=== PATIENT | male | born 1960 | race Caucasian/White ===

== ENCOUNTER 2017-06-10 10:49 | Emergency (ER) | payer MEDICARE ==
[2017-06-10 11:02] VITALS: TEMP 96.9
[2017-06-10] MEDS ORDERED: SODIUM CHLORIDE 0.9% 1,000 ML IV STA (11:26)
--- NOTE | 2017-06-10 11:29 | ED ---
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 He complains some left-sided chest discomfort over his pacemaker site which he states he gets after the fairly relates. He did not notice any of the usual signs however. He has a cough fevers chills nausea vomiting sweats or other symptoms no weakness he feels back to normal at this time except for some slight left chest wall tenderness and his pacemaker site. The current generator is from 2010. MD Complaint: loss of consciousness - Related Data Home Medications Medication Instructions Recorded Confirmed Albuterol Nebulized [Ventolin 2.5 mg INHALATION RT-Q4H PRN 06/10/17 06/10/17 Nebulized] Albuterol Sulfate [Proair Hfa] 1 - 2 puff INHALATION RT-Q4H PRN 06/10/17 Aspirin 325 mg PO DAILY 06/10/17 06/10/17 Bumetanide [BUMEX] 2 mg PO BID 06/10/17 06/10/17 Cholecalciferol [Vitamin D3] 5,000 unit PO DAILY 06/10/17 06/10/17 Febuxostat [Uloric] 40 mg PO DAILY 06/10/17 06/10/17 Isosorbide Mononitrate ER [Imdur] 30 mg PO DAILY 06/10/17 06/10/17 Latanoprost Ophth [Xalatan 0.005%] 1 drops BOTH EYES HS 06/10/17 06/10/17 Metolazone [Zaroxolyn] 5 mg PO Q7D 06/10/17 06/10/17 Metoprolol Succinate (ER) [Toprol 100 mg PO DAILY 06/10/17 06/10/17 Xl] Nitroglycerin Sl Tabs [Nitrostat] 0.4 mg SUBLINGUAL Q5M PRN 06/10/17 06/10/17 Potassium Chloride [Klor-Con 20] 20 meq PO BID-W/MEALS 06/10/17 06/10/17 Pravastatin Sodium [Pravachol] 80 mg PO DIRECTED 06/10/17 06/10/17 Spironolactone [Aldactone] 25 mg PO DIRECTED 06/10/17 06/10/17 Allergies Allergy/AdvReac Type Severity Reaction Status Date / Time KATHY Inhibitors Allergy Unknown Verified 06/10/17 11:54 ARB-Angiotensin Receptor Allergy Unknown Verified 06/10/17 11:54 Antagonist carvedilol [From Coreg] Allergy Unknown Verified 06/10/17 11:54 niacin Allergy Unknown Verified 06/10/17 11:54 NSAIDS (Non-Steroidal Allergy Unknown Verified 06/10/17 11:54 Anti-Inflamma omeprazole Allergy Unknown Verified 06/10/17 11:54 Penicillins Allergy Rash/Hives Verified 06/10/17 11:02 toremifene Allergy Unknown Verified 06/10/17 11:54 IRON OXIDE Allergy Unknown Uncoded 06/10/17 11:54 Review of Systems ROS Statement: Those systems with pertinent positive or pertinent negative responses have been documented in the HPI. ROS Other: All systems not noted in ROS Statement are negative. Past Medical History Past Medical History: Chest Pain / Angina, Heart Failure, COPD, GERD/Reflux, Hyperlipidemia, Hypertension, Myocardial Infarction ([place]) History of Any Multi-Drug Resistant Organisms: None Reported Past Surgical History: AICD, Appendectomy, Cholecystectomy, Coronary Bypass/CABG , Heart Catheterization With Stent Past Psychological History: No Psychological Hx Reported Smoking Status: Former smoker Past Alcohol Use History: None Reported Past Drug Use History: None Reported General Exam - General Exam Comments Initial Comments: This is a well-developed well-nourished awake alert oriented times 3 male Limitations: no limitations General appearance: alert, in no apparent distress Head exam: Present: atraumatic, normocephalic, normal inspection Eye exam: Present: normal appearance, PERRL, EOMI. Absent: scleral icterus, conjunctival injection, periorbital swelling ENT exam: Present: normal exam, mucous membranes moist Neck exam: Present: normal inspection. Absent: tenderness, meningismus, lymphadenopathy Respiratory exam: Present: normal lung sounds bilaterally, chest wall tenderness. Absent: respiratory distress, wheezes, rales, rhonchi, stridor Cardiovascular Exam: Present: regular rate, normal rhythm, normal heart sounds. Absent: systolic murmur, diastolic murmur, rubs, gallop, clicks GI/Abdominal exam: Present: soft, normal bowel sounds. Absent: distended, tenderness, guarding, rebound, rigid Extremities exam: Present: normal inspection, full ROM, normal capillary refill. Absent: tenderness, pedal edema, joint swelling, calf tenderness Back exam: Present: normal inspection Neurological exam: Present: alert, oriented X3, CN II-XII intact Psychiatric exam: Present: normal affect, normal mood Skin exam: Present: warm, dry, intact, normal color. Absent: rash Course Vital Signs 06/10/17 06/10/17 06/10/17 10:50 12:02 13:00 Temperature 96.9 F L Pulse Rate 63 58 L 59 L Respiratory 16 18 18 Rate Blood Pressure 158/74 151/66 155/63 O2 Sat by Pulse 96 95 95 Oximetry EKG Findings - EKG Results: EKG: interpreted by ERMD (Sinus rhythm with PVCs noted PA interval 180 QRS duration 140 QT/QTC of 502/50 to left exodeviation right bundle-branch block old inferior changes.) Medical Decision Making - Medical Decision Making Patient remains awake alert oriented times. Did have a long discussion with patient family also did discuss the case with Dr. Talbert also with the [employer] eligibility services representative. Patient's defibrillator did inappropriately go off today he has designed. Patient has no abnormality to check his lab work. He does have close follow-up with his production supply equipment tender and would like to go home at this time this seems reasonable patient will be discharged with copies of his labs and EKG is keep his follow-up no driving follow-up with his doctor return when necessary - Lab Data Result diagrams: 06/10/17 11:23 06/10/17 11:23 Lab Results 06/10/17 06/10/17 06/10/17 Range/Units 11:23 11:23 11:23 WBC 8.7 (3.8-10.6) k/uL RBC 4.04 L (4.30-5.90) m/uL Hgb 12.4 L (13.0-17.5) gm/dL Hct 36.8 L (39.0-53.0) % MCV 91.1 (80.0-100.0) fL MCH 30.8 (25.0-35.0) pg MCHC 33.8 (31.0-37.0) g/dL RDW 18.1 H (11.5-15.5) % Plt Count 163 (150-450) k/uL Neutrophils % 80 % Lymphocytes % 9 % Monocytes % 6 % Eosinophils % 3 % Basophils % 0 % Neutrophils # 6.9 (1.3-7.7) k/uL Lymphocytes # 0.8 L (1.0-4.8) k/uL Monocytes # 0.5 (0-1.0) k/uL Eosinophils # 0.3 (0-0.7) k/uL Basophils # 0.0 (0-0.2) k/uL Poikilocytosis Slight Anisocytosis Slight PT (9.0-12.0) sec INR (<1.2) APTT (22.0-30.0) sec Sodium 141 (137-145) mmol/L Potassium 3.8 (3.5-5.1) mmol/L Chloride 94 L (98-107) mmol/L Carbon Dioxide 32 H (22-30) mmol/L Anion Gap 15 mmol/L BUN 64 H (9-20) mg/dL Creatinine 2.20 H (0.66-1.25) mg/dL Est GFR (MDRD) Af Amer 38 (>60 ml/min/1.73 sqM) Est GFR (MDRD) Non-Af 31 (>60 ml/min/1.73 sqM) Glucose 120 H (74-99) mg/dL Calcium 10.2 (8.4-10.2) mg/dL Magnesium 2.1 (1.6-2.3) mg/dL Total Bilirubin 0.5 (0.2-1.3) mg/dL AST 22 (17-59) U/L ALT 36 (21-72) U/L Alkaline Phosphatase 96 (38-126) U/L Total Creatine Kinase 62 (55-170) U/L CK-MB (CK-2) 1.3 (0.0-2.4) ng/mL CK-MB (CK-2) Rel Index 2.1 Troponin I 0.021 (0.000-0.034) ng/mL Total Protein 7.5 (6.3-8.2) g/dL Albumin 4.6 (3.5-5.0) g/dL Urine Color Urine Appearance (Clear) Urine pH (5.0-8.0) Ur Specific Hume (1.001-1.035) Urine Protein (Negative) Urine Glucose (UA) (Negative) Urine Ketones (Negative) Urine Blood (Negative) Urine Nitrite (Negative) Urine Bilirubin (Negative) Urine Urobilinogen (<2.0) mg/dL Ur Leukocyte Esterase (Negative) 06/10/17 06/10/17 Range/Units 11:23 11:23 WBC (3.8-10.6) k/uL RBC (4.30-5.90) m/uL Hgb (13.0-17.5) gm/dL Hct (39.0-53.0) % MCV (80.0-100.0) fL MCH (25.0-35.0) pg MCHC (31.0-37.0) g/dL RDW (11.5-15.5) % Plt Count (150-450) k/uL Neutrophils % % Lymphocytes % % Monocytes % % Eosinophils % % Basophils % % Neutrophils # (1.3-7.7) k/uL Lymphocytes # (1.0-4.8) k/uL Monocytes # (0-1.0) k/uL Eosinophils # (0-0.7) k/uL Basophils # (0-0.2) k/uL Poikilocytosis Anisocytosis PT 10.3 (9.0-12.0) sec INR 1.0 (<1.2) APTT 24.6 (22.0-30.0) sec Sodium (137-145) mmol/L Potassium (3.5-5.1) mmol/L Chloride (98-107) mmol/L Carbon Dioxide (22-30) mmol/L Anion Gap mmol/L BUN (9-20) mg/dL Creatinine (0.66-1.25) mg/dL Est GFR (MDRD) Af Amer (>60 ml/min/1.73 sqM) Est GFR (MDRD) Non-Af (>60 ml/min/1.73 sqM) Glucose (74-99) mg/dL Calcium (8.4-10.2) mg/dL Magnesium (1.6-2.3) mg/dL Total Bilirubin (0.2-1.3) mg/dL AST (17-59) U/L ALT (21-72) U/L Alkaline Phosphatase (38-126) U/L Total Creatine Kinase (55-170) U/L CK-MB (CK-2) (0.0-2.4) ng/mL CK-MB (CK-2) Rel Index Troponin I (0.000-0.034) ng/mL Total Protein (6.3-8.2) g/dL Albumin (3.5-5.0) g/dL Urine Color Light Yellow Urine Appearance Clear (Clear) Urine pH 7.5 (5.0-8.0) Ur Specific Hume 1.006 (1.001-1.035) Urine Protein Negative (Negative) Urine Glucose (UA) Negative (Negative) Urine Ketones Negative (Negative) Urine Blood Negative (Negative) Urine Nitrite Negative (Negative) Urine Bilirubin Negative (Negative) Urine Urobilinogen <2.0 (<2.0) mg/dL Ur Leukocyte Esterase Negative (Negative) - Radiology Data Radiology results: report reviewed (Imaging shows no evidence of acute findings. ), image reviewed Disposition Clinical Impression: Syncope, Defibrillator discharge, Chronic renal insufficiency Disposition: HOME SELF-CARE Condition: Good Instructions: Syncope (ED) Additional Instructions: Defibrillator discharge today. Follow with her production supply equipment tender. No driving until cleared by cardiology. Return if any problems Referrals: Ela Bowles MD [Primary Care Provider] - 1-2 days
[2017-06-10 11:47] LABS: Anisocytosis Slight; Basophils % (A) 0 %; CH 31.8; Eosinophils # (A) 0.3 k/uL (0-0.7); Eosinophils % (A) 3 %; HCT 36.8 % (39.0-53.0); HDW 3.45; HGB 12.4 gm/dL (13.0-17.5); Luc # (Auto) 0.16; Luc % (Auto) 2; Lymphocytes # (A) 0.8 k/uL (1.0-4.8); Lymphocytes % (A) 9 %; MCH 30.8 pg (25.0-35.0); MCHC 33.8 g/dL (31.0-37.0); MCV 91.1 fL (80.0-100.0); Mean Platelet Volume 7.4; Monocytes # (A) 0.5 k/uL (0-1.0); Monocytes % (A) 6 %; Neutrophils # (A) 6.9 k/uL (1.3-7.7); Neutrophils % (A) 80 %; Poikilocytosis Slight; RBC 4.04 m/uL (4.30-5.90); RDW 18.1 % (11.5-15.5); WBC 8.7 k/uL (3.8-10.6); WBC (Perox) 8.75
[2017-06-10 11:53] LABS: Appearance,Urine Clear (Clear); Bilirubin,Urine Negative (Negative); Glucose,Urine (UA) Negative (Negative); Ketones,Urine Negative (Negative); Leukocyte Esterase,Urine Negative (Negative); Nitrite,Urine Negative (Negative); PH, Urine 7.5 (5.0-8.0); Protein,Urine Negative (Negative); Specific Gravity,Urine 1.006 (1.001-1.035); UA Billing (MACRO vs. MICRO) CHEM; Urobilinogen,Urine <2.0 mg/dL (<2.0)
[2017-06-10 11:55] LABS: Partial Thromboplastin Time 24.6 sec (22.0-30.0); Prothrombin Time 10.3 sec (9.0-12.0)
--- NOTE | 2017-06-10 12:03 | XR ---
EXAMINATION TYPE: XR chest 2V DATE OF EXAM: 06/10/2017 COMPARISON: 06/10/17 HISTORY: Shortness of breath TECHNIQUE: Frontal and lateral views of the chest are obtained. FINDINGS: Scattered senescent parenchymal changes noted. Hyperinflation compatible with COPD. No evidence for infiltrate. No evidence for atelectasis. Heart size is stable. Mediastinal structures are stable and grossly unremarkable. No evidence for hilar prominence. Degenerative changes dorsal spine. IMPRESSION: 1. No evidence for acute pulmonary disease.
[2017-06-10 12:05] LABS: Calcium 10.2 mg/dL (8.4-10.2); Magnesium 2.1 mg/dL (1.6-2.3); Potassium 3.8 mmol/L (3.5-5.1); Total Bilirubin 0.5 mg/dL (0.2-1.3); Total Protein 7.5 g/dL (6.3-8.2)
[2017-06-10 12:25] LABS: Creatine Kinase MB 1.3 ng/mL (0.0-2.4); Troponin I 0.021 ng/mL (0.000-0.034)
[2017-06-10 12:35] VITALS: RESP 18
[2017-06-10 14:25] VITALS: BP 138/76; PULSE 56
== END 2017-06-10 14:27 | disposition home or self-care (01) ==
LOC: EC 10:49
DX: T82.119A Breakdown (mechanical) of unspecified cardiac electronic device, initial encounter (principal); I13.0 Hypertensive heart and chronic kidney disease with heart failure and stage 1 through stage 4 chronic kidney disease, or unspecified chronic kidney disease; I50.9 Heart failure, unspecified; N18.9 Chronic kidney disease, unspecified; E78.5 Hyperlipidemia, unspecified; I25.2 Old myocardial infarction; Z87.891 Personal history of nicotine dependence; Z79.82 Long term (current) use of aspirin; Z79.899 Other long term (current) drug therapy; Z88.0 Allergy status to penicillin; Z88.6 Allergy status to analgesic agent; Z88.8 Allergy status to other drugs, medicaments and biological substances; Z95.810 Presence of automatic (implantable) cardiac defibrillator; Z86.79 Personal history of other diseases of the circulatory system
CPT/HCPCS: 36415; 71020; 80053; 81003; 82550; 82553; 83735; 84484; 85025; 85610; 85730; 93005; 96360; 96361; 99285

== ENCOUNTER 2017-06-10 22:16 | Inpatient (IN) | payer MEDICARE ==
[2017-06-10 22:27] LABS: Anisocytosis Slight; Basophils % (A) 0 %; CH 31.9; CHCM 34.8; Eosinophils # (A) 0.2 k/uL (0-0.7); Eosinophils % (A) 3 %; HCT 35.1 % (39.0-53.0); HDW 3.34; HGB 11.7 gm/dL (13.0-17.5); Luc # (Auto) 0.14; Luc % (Auto) 2; Lymphocytes # (A) 0.8 k/uL (1.0-4.8); Lymphocytes % (A) 9 %; MCH 30.7 pg (25.0-35.0); MCHC 33.3 g/dL (31.0-37.0); MCV 92.1 fL (80.0-100.0); Mean Platelet Volume 7.7; Monocytes # (A) 0.5 k/uL (0-1.0); Monocytes % (A) 5 %; Neutrophils # (A) 6.9 k/uL (1.3-7.7); Neutrophils % (A) 81 %; RBC 3.82 m/uL (4.30-5.90); WBC 8.5 k/uL (3.8-10.6); WBC (Perox) 8.93
--- NOTE | 2017-06-10 22:32 | ED ---
General Adult HPI - General Chief complaint: Arrhythmia/Palpitations Stated complaint: Defibrillator firing Time Seen by Provider: 06/10/17 22:17 Source: patient, EMS, RN notes reviewed, old records reviewed Mode of arrival: EMS Limitations: no limitations - History of Present Illness Initial comments: Patient is a pleasant 56-year-old male presenting to the emergency department following defibrillator firing. Patient states it fired twice prior to arrival. Patient was symptom-free prior to defibrillation. Patient states at this time he does feel slightly fatigued and does have some minimal palpitations. Patient did have similar episode happened this morning and was in the emergency department. Patient reportedly did have a defibrillator interrogated and cardiology was consulted. Patient denies any chest discomfort. No dyspnea. - Related Data Home Medications Medication Instructions Recorded Confirmed Albuterol Nebulized [Ventolin 2.5 mg INHALATION RT-Q4H PRN 06/10/17 06/10/17 Nebulized] Albuterol Sulfate [Proair Hfa] 1 - 2 puff INHALATION RT-Q4H PRN 06/10/17 Aspirin EC [Ecotrin Low Dose] 81 mg PO DAILY 06/10/17 06/10/17 Bumetanide [BUMEX] 2 mg PO BID 06/10/17 06/10/17 Carvedilol [Coreg] 25 mg PO BID 06/10/17 06/10/17 Cholecalciferol [Vitamin D3] 6,000 unit PO DAILY 06/10/17 06/10/17 Febuxostat [Uloric] 40 mg PO DAILY 06/10/17 06/10/17 Isosorbide Mononitrate ER [Imdur] 30 mg PO DAILY 06/10/17 06/10/17 Latanoprost Ophth [Xalatan 0.005%] 1 drops BOTH EYES HS 06/10/17 06/10/17 Losartan [Cozaar] 25 mg PO DAILY 06/10/17 06/10/17 Magnesium Oxide [Mag-Ox] 800 mg PO DAILY 06/10/17 06/10/17 Metolazone [Zaroxolyn] 5 mg PO MOWEFR 06/10/17 06/10/17 Metoprolol Succinate (ER) [Toprol 100 mg PO DAILY 06/10/17 06/10/17 Xl] Nitroglycerin Sl Tabs [Nitrostat] 0.4 mg SUBLINGUAL Q5M PRN 06/10/17 06/10/17 Potassium Chloride [Klor-Con 20] 20 meq PO BID-W/MEALS 06/10/17 06/10/17 Pravastatin Sodium [Pravachol] 80 mg PO DIRECTED 06/10/17 06/10/17 Ranitidine HCl [Zantac] 300 mg PO HS 06/10/17 06/10/17 Spironolactone [Aldactone] 25 mg PO DIRECTED 06/10/17 06/10/17 Allergies Allergy/AdvReac Type Severity Reaction Status Date / Time KATHY Inhibitors Allergy Unknown Verified 06/10/17 22:55 ARB-Angiotensin Receptor Allergy Unknown Verified 06/10/17 22:55 Antagonist carvedilol [From Coreg] Allergy Unknown Verified 06/10/17 22:55 niacin Allergy Unknown Verified 06/10/17 22:55 NSAIDS (Non-Steroidal Allergy Unknown Verified 06/10/17 22:55 Anti-Inflamma omeprazole Allergy Unknown Verified 06/10/17 22:55 Penicillins Allergy Rash/Hives Verified 06/10/17 22:55 toremifene Allergy Unknown Verified 06/10/17 22:55 IRON OXIDE Allergy Unknown Uncoded 06/10/17 11:54 Review of Systems ROS Statement: Those systems with pertinent positive or pertinent negative responses have been documented in the HPI. ROS Other: All systems not noted in ROS Statement are negative. Constitutional: Denies: fever Eyes: Denies: eye pain ENT: Denies: ear pain Respiratory: Denies: cough, dyspnea Cardiovascular: Reports: palpitations. Denies: chest pain Endocrine: Reports: fatigue Gastrointestinal: Denies: abdominal pain Genitourinary: Denies: dysuria Musculoskeletal: Denies: back pain Skin: Denies: rash Neurological: Denies: weakness Past Medical History Past Medical History: Chest Pain / Angina, Heart Failure, COPD, GERD/Reflux, Hyperlipidemia, Hypertension, Myocardial Infarction ([place]) History of Any Multi-Drug Resistant Organisms: None Reported Past Surgical History: AICD, Appendectomy, Cholecystectomy, Coronary Bypass/CABG , Heart Catheterization With Stent Past Psychological History: No Psychological Hx Reported Smoking Status: Former smoker Past Alcohol Use History: None Reported Past Drug Use History: None Reported General Exam Limitations: no limitations General appearance: alert, in no apparent distress Head exam: Present: atraumatic Eye exam: Present: normal appearance, PERRL ENT exam: Present: normal oropharynx Neck exam: Present: normal inspection Respiratory exam: Present: normal lung sounds bilaterally Cardiovascular Exam: Present: irregular rhythm Expanded Peripheral pulses: 2+: Radial (R), Radial (L), Dorsalis Pedis (R), Dorsalis Pedis (L) GI/Abdominal exam: Present: soft. Absent: tenderness Extremities exam: Present: normal inspection Neurological exam: Present: alert Psychiatric exam: Present: normal affect, normal mood Skin exam: Present: normal color Course Vital Signs 06/10/17 22:21 Temperature 98.9 F Pulse Rate 66 Respiratory 20 Rate Blood Pressure 160/67 O2 Sat by Pulse 99 Oximetry EKG Findings - EKG Comments: EKG Findings:: Sinus rhythm at 65. Recurrent PVCs. IL 186. QRS 152. QT 498. QTC 517. Left axis. Right bundle branch block. Nonspecific ST-T. Medical Decision Making - Medical Decision Making Patient reevaluated and resting comfortably at bedside. Patient is updated on results. Cardiology has been paged. Case was discussed in detail with Dr. Rae, who will admit for hospital call. - Lab Data Result diagrams: 06/10/17 22:19 06/10/17 22:19 Lab Results 06/10/17 06/10/17 06/10/17 Range/Units 22:19 22:19 22:19 WBC 8.5 (3.8-10.6) k/uL RBC 3.82 L (4.30-5.90) m/uL Hgb 11.7 L (13.0-17.5) gm/dL Hct 35.1 L (39.0-53.0) % MCV 92.1 (80.0-100.0) fL MCH 30.7 (25.0-35.0) pg MCHC 33.3 (31.0-37.0) g/dL RDW 18.0 H (11.5-15.5) % Plt Count 151 (150-450) k/uL Neutrophils % 81 % Lymphocytes % 9 % Monocytes % 5 % Eosinophils % 3 % Basophils % 0 % Neutrophils # 6.9 (1.3-7.7) k/uL Lymphocytes # 0.8 L (1.0-4.8) k/uL Monocytes # 0.5 (0-1.0) k/uL Eosinophils # 0.2 (0-0.7) k/uL Basophils # 0.0 (0-0.2) k/uL Anisocytosis Slight PT (9.0-12.0) sec INR (<1.2) APTT (22.0-30.0) sec Sodium 140 (137-145) mmol/L Potassium 3.5 (3.5-5.1) mmol/L Chloride 95 L (98-107) mmol/L Carbon Dioxide 32 H (22-30) mmol/L Anion Gap 13 mmol/L BUN 67 H (9-20) mg/dL Creatinine 2.20 H (0.66-1.25) mg/dL Est GFR (MDRD) Af Amer 38 (>60 ml/min/1.73 sqM) Est GFR (MDRD) Non-Af 31 (>60 ml/min/1.73 sqM) Glucose 131 H (74-99) mg/dL Calcium 9.6 (8.4-10.2) mg/dL Magnesium 2.1 (1.6-2.3) mg/dL Total Bilirubin 0.4 (0.2-1.3) mg/dL AST 21 (17-59) U/L ALT 37 (21-72) U/L Alkaline Phosphatase 79 (38-126) U/L Total Creatine Kinase 47 L (55-170) U/L CK-MB (CK-2) 1.0 (0.0-2.4) ng/mL CK-MB (CK-2) Rel Index 2.1 Troponin I 0.021 (0.000-0.034) ng/mL Total Protein 7.0 (6.3-8.2) g/dL Albumin 4.2 (3.5-5.0) g/dL TSH 4.380 (0.465-4.680) mIU/L Free T4 1.12 (0.78-2.19) ng/dL Free T3 pg/mL 4.4 (2.8-5.3) pg/ml 06/10/17 Range/Units 22:19 WBC (3.8-10.6) k/uL RBC (4.30-5.90) m/uL Hgb (13.0-17.5) gm/dL Hct (39.0-53.0) % MCV (80.0-100.0) fL MCH (25.0-35.0) pg MCHC (31.0-37.0) g/dL RDW (11.5-15.5) % Plt Count (150-450) k/uL Neutrophils % % Lymphocytes % % Monocytes % % Eosinophils % % Basophils % % Neutrophils # (1.3-7.7) k/uL Lymphocytes # (1.0-4.8) k/uL Monocytes # (0-1.0) k/uL Eosinophils # (0-0.7) k/uL Basophils # (0-0.2) k/uL Anisocytosis PT 10.5 (9.0-12.0) sec INR 1.0 (<1.2) APTT 22.4 (22.0-30.0) sec Sodium (137-145) mmol/L Potassium (3.5-5.1) mmol/L Chloride (98-107) mmol/L Carbon Dioxide (22-30) mmol/L Anion Gap mmol/L BUN (9-20) mg/dL Creatinine (0.66-1.25) mg/dL Est GFR (MDRD) Af Amer (>60 ml/min/1.73 sqM) Est GFR (MDRD) Non-Af (>60 ml/min/1.73 sqM) Glucose (74-99) mg/dL Calcium (8.4-10.2) mg/dL Magnesium (1.6-2.3) mg/dL Total Bilirubin (0.2-1.3) mg/dL AST (17-59) U/L ALT (21-72) U/L Alkaline Phosphatase (38-126) U/L Total Creatine Kinase (55-170) U/L CK-MB (CK-2) (0.0-2.4) ng/mL CK-MB (CK-2) Rel Index Troponin I (0.000-0.034) ng/mL Total Protein (6.3-8.2) g/dL Albumin (3.5-5.0) g/dL TSH (0.465-4.680) mIU/L Free T4 (0.78-2.19) ng/dL Free T3 pg/mL (2.8-5.3) pg/ml - Radiology Data Radiology results: image reviewed (Chest x-ray shows no acute process, no change from previous. Cardiomegaly and defibrillator present. Sternotomy wires present.) Disposition Clinical Impression: Defibrillator discharge Disposition: ADMITTED IP TO THIS HOSP Referrals: Ela Bowles MD [Primary Care Provider] - 1-2 days Decision Time: 00:10
[2017-06-10 22:35] LABS: Partial Thromboplastin Time 22.4 sec (22.0-30.0); Prothrombin Time 10.5 sec (9.0-12.0)
[2017-06-10 22:37] LABS: Calcium 9.6 mg/dL (8.4-10.2); Magnesium 2.1 mg/dL (1.6-2.3); Potassium 3.5 mmol/L (3.5-5.1); Total Bilirubin 0.4 mg/dL (0.2-1.3)
--- NOTE | 2017-06-10 22:49 | XR ---
EXAM: XR Chest, 1 View CLINICAL HISTORY: Reason: dysrhythmia TECHNIQUE: Frontal view of the chest. COMPARISON: Chest radiography 06/10/17 performed at 11:57 AM. FINDINGS: Lungs: Unchanged prominent cardiac silhouette to include probable cardiomegaly. Unchanged AICD/pacer. No new consolidation, pleural effusion or pneumothorax. No other changes. Pleural space: See above. Heart: See above. Mediastinum: Unremarkable. Bones/joints: Unremarkable. IMPRESSION: No change or evidence for acute cardiopulmonary disease.
[2017-06-10 23:03] LABS: Troponin I 0.021 ng/mL (0.000-0.034)
[2017-06-11] MEDS ORDERED: NITROGLYCERIN SL TABS 0.4 MG TAB SUBLINGUAL PRN ×2 (00:11→15:53)
[2017-06-11 02:01] VITALS: BMI 35.4
[2017-06-11 05:29] LABS: Creatine Kinase MB 0.8 ng/mL (0.0-2.4); Troponin I 0.028 ng/mL (0.000-0.034)
[2017-06-11] MEDS ORDERED: POTASSIUM CHLORIDE ER 20 MEQ TAB.ER PO STA (09:25)
[2017-06-11] MEDS ORDERED: DEXTROSE 5% IN WATER 100 ML with AMIODARONE 150 MG IV ONE (11:57)
[2017-06-11 12:32] LABS: Creatine Kinase MB 0.8 ng/mL (0.0-2.4); Troponin I 0.022 ng/mL (0.000-0.034)
--- NOTE | 2017-06-11 12:32 | ECHOF ---
Referral Reason:chest pain MEASUREMENTS -------- HEIGHT: 182.9 cm WEIGHT: 118.4 kg BP: 135/55 RVIDd: 3.6 cm (< 3.3) IVSd: 1.4 cm (0.6 - 1.1) LVIDd: 5.3 cm (3.9 - 5.3) LVPWd: 1.4 cm (0.6 - 1.1) IVSs: 1.7 cm LVIDs: 4.3 cm LVPWs: 2.2 cm LA Diam: 4.3 cm (2.7 - 3.8) LAESV Index (A-L): 46.40 ml/m Ao Diam: 3.9 cm (2.0 - 3.7) AV Cusp: 2.8 cm (1.5 - 2.6) MV EXCURSION: 17.180 mm (> 18.000) MV EF SLOPE: 28 mm/s (70 - 150) EPSS: 1.1 cm MV E Lenny: 1.18 m/s MV DecT: 199 ms MV A Lenny: 1.16 m/s MV E/A Ratio: 1.02 RAP: 5.00 mmHg RVSP: 35.66 mmHg FINDINGS -------- Sinus rhythm. This was a technically difficult study with suboptimal views. The left ventricular size is normal. There is moderate concentric left ventricular hypertrophy. Overall left ventricular systolic function is mild-moderately impaired with, an EF between 40 - 45 %. Basal inferior LV wall motion is hypokinetic. Basal inferoseptal LV wall motion is hypokinetic. The right ventricle is mildly enlarged. LA is severely dilated >40 ml/m2 The right atrium was not well visualized. 1.5mg of Definity was utilized for enhancement of images The aortic valve is trileaflet and appears structurally normal. Mild mitral annular calcification present. There is trace to mild mitral regurgitation. Mild tricuspid regurgitation present. There is mild pulmonary hypertension. The pulmonic valve was not well visualized. The aortic root is dilated measuring 3.9cm. The inferior vena cava is moderately dilated. There is no pericardial effusion. CONCLUSIONS -------- 1. Sinus rhythm. 2. The right atrium was not well visualized. 3. 1.5mg of Definity was utilized for enhancement of images 4. The aortic valve is trileaflet and appears structurally normal. 5. Mild mitral annular calcification present. 6. There is trace to mild mitral regurgitation. 7. Mild tricuspid regurgitation present. 8. There is mild pulmonary hypertension. 9. The pulmonic valve was not well visualized. 10. The aortic root is dilated measuring 3.9cm. 11. The inferior vena cava is moderately dilated. 12. This was a technically difficult study with suboptimal views. 13. There is no pericardial effusion. 14. The left ventricular size is normal. 15. There is moderate concentric left ventricular hypertrophy. 16. Overall left ventricular systolic function is mild-moderately impaired with, an EF between 40 - 45 %. 17. Basal inferior LV wall motion is hypokinetic. 18. Basal inferoseptal LV wall motion is hypokinetic. 19. The right ventricle is mildly enlarged. 20. LA is severely dilated >40 ml/m2 EXTRUSION TECHNICIAN: Kathleen Prasad RDCS
[2017-06-11] MEDS: AMIODARONE 450 MG in DEXTROSE 5% IN WATER 250 ML IV SCH ×4 (13:03→20:31)
--- NOTE | 2017-06-11 15:07 | CONS ---
This is a 56-year-old gentleman who lives in the [place], [place] area and had most of his workup done in the [place] area. He has history of ischemic cardiomyopathy. In 1994 he had myocardial infarction and underwent aortocoronary bypass surgery. In 2010 he had defibrillator and in 2012 he had a coronary stenting. The details of the procedures are not available. He was last seen by his marine fitter about a couple of months ago. He came in here in the [facility] and had defibrillator discharge. He came to the emergency room and was evaluated and there was an interrogation performed. He was sent back home. He comes back again with another defibrillator discharge. We have requested [employer] to send us a report of the interrogation but they have as of my dictation not provided any report to us. We will be observing him very closely in a monitored setting and consider adding Amiodarone to his regimen. At the time of my evaluation he is resting comfortably. Denies chest pain. Has stable shortness of breath and no palpitations. There is definitely an element of anxiety. PAST MEDICAL HISTORY: 1. CAD with prior bypass surgery, myocardial infarction and PCI. 2. He has an AICD placed in 2010. He is here for defibrillator discharge. Medications at home include: 1. Carvedilol 25 mg b.i.d. 2. Aspirin 81 mg daily. 3. Bumex 2 mg b.i.d. 4. Ventolin inhaler. 5. Cozaar 25 mg daily. 6. Zaroxolyn 5 mg every other day. 7. Metoprolol succinate 100 mg daily. 8. Sublingual nitroglycerine p.r.n. 9. Pravastatin 80 mg daily. 10. Ranitidine. 11. Aldactone 25 mg daily. He is allergic to KATHY INHIBITORS. HE IS ALSO ALLERGIC TO PENICILLIN. On examination blood pressure is 124/70, pulse rate 68 per minute and regular. HEENT: Unremarkable. Fundus was not examined by me. NECK: Supple. There is JVD of 1 cm. No carotid bruit. HEART: Exam reveals an S1, S2 with short systolic murmur. LUNGS: Reveals diminished air entry. ABDOMEN: Distended, nontender. LOWER EXTREMITIES: Reveal trace edema and diminished pulses. CENTRAL NERVOUS SYSTEM: Normal. EKG revealed a sinus mechanism with a right bundle branch block and leftward axis, isolated PVCs and nonspecific ST-T changes. IMPRESSION: 1. Defibrillator discharge. Interrogation reports are pending. 2. History of ischemic cardiomyopathy. 3. History of prior bypass surgery. 4. History of prior PCI and AICD placement. RECOMMENDATIONS: I am recommending that we will obtain the interrogation report. If this not available will have them come in and interrogate the device in person. For now we will keep him in monitored unit and correct his potassium , which is 3.5 and give him 20 mEq of potassium. If he did have VT/VF , after verification on the [employer] report, will load him with amiodarone and monitor for 48 hrs.Obtain echocardiogram and then move him to the telemetry unit. I discussed my thoughts in detail with the patient. Thank you very much for the consultation. IHSAN
[2017-06-11] MEDS ORDERED: ALBUTEROL NEBULIZED 2.5 MG/3 ML INHALATION PRN (15:53)
[2017-06-11] MEDS: HEPARIN SODIUM,PORCINE 5,000 UNIT/ML 1 ML VIAL SQ SCH (16:52)
[2017-06-11] MEDS: BUMETANIDE 1 MG TAB PO SCH (16:52)
[2017-06-11] MEDS: POTASSIUM CHLORIDE ER 20 MEQ TAB.ER PO SCH (16:52)
[2017-06-11] MEDS: METOLAZONE 5 MG TAB PO SCH (16:52)
[2017-06-11] MEDS: CARVEDILOL 12.5 MG TAB PO SCH (18:03)
[2017-06-11] MEDS: LATANOPROST 0.005% OPHTH DROPS 2.5 ML BTL BOTH EYES SCH (20:31)
[2017-06-11] MEDS: FAMOTIDINE 20 MG TAB PO SCH (20:31)
[2017-06-11] MEDS: SPIRONOLACTONE 25 MG PO SCH (20:32)
[2017-06-11] MEDS: PRAVASTATIN SODIUM 80 MG PO SCH (20:33)
[2017-06-11 20:47] VITALS: RESP 18
--- NOTE | 2017-06-11 22:03 | P.HPIM ---
History of Present Illness H&P Date: 06/11/17 Chief Complaint: Defibrillator discharge Patient is a pleasant 56-year-old male with a known history of ischemic cardio myopathy status post AICD placement, history of coronary artery bypass graft and also history of PCI presenting to the emergency department following defibrillator firing. Patient states it fired twice prior to arrival. Patient was symptom-free prior to defibrillation. Patient states at this time he does feel slightly fatigued and does have some minimal palpitations. Patient did have similar episode happened this morning and was in the emergency department. cardiology was consulted. Patient denies any chest discomfort. No dyspnea. Patient denied any recent illness. Patient usually follows with [facility]. Patient had chest x-ray in the yard showed no acute process. EKG showed sinus rhythm with right bundle branch block and PVCs. 2-D echo showed his extraction 40-45% and dilated left atrium. Review of Systems CONSTITUTIONAL: No fever, no malaise, no fatigue. HEENT: No recent visual problems or hearing problems. Denied any sore throat. CARDIOVASCULAR: No chest pain, orthopnea, PND, no palpitations, no syncope. PULMONARY: , no hemoptysis. GASTROINTESTINAL: No diarrhea, no nausea, no vomiting, no abdominal pain. Normoactive bowel sounds. NEUROLOGICAL: No headaches, no weakness, no numbness. HEMATOLOGICAL: Denies any bleeding or petechiae. GENITOURINARY: Denies any burning micturition, frequency, or urgency. MUSCULOSKELETAL/RHEUMATOLOGICAL: Denies any joint pain, swelling, or any muscle pain. ENDOCRINE: Denies any polyuria or polydipsia. The rest of the 14-point review of systems is negative. Past Medical History Past Medical History: Chest Pain / Angina, Heart Failure, COPD, GERD/Reflux, Hyperlipidemia, Hypertension, Myocardial Infarction ([place]), Vascular Disorder Additional Past Medical History / Comment(s): "One working kidney" Last Myocardial Infarction Date:: 2010 History of Any Multi-Drug Resistant Organisms: None Reported Past Surgical History: AICD, Appendectomy, Cholecystectomy, Coronary Bypass/CABG , Heart Catheterization With Stent Past Anesthesia/Blood Transfusion Reactions: No Reported Reaction Date of Last Stent Placement:: 2012 Type of Cardiac Device: AICD Device Placement Date:: 2010 Past Psychological History: No Psychological Hx Reported Smoking Status: Former smoker Past Alcohol Use History: None Reported Past Drug Use History: None Reported - Past Family History Father Family Medical History: Coronary Artery Disease (CAD), Myocardial Infarction ([place] ) Sister(s) Family Medical History: Diabetes Mellitus, Myocardial Infarction ([place]) Additional Family Medical History / Comment(s): at age 35 from [place] Medications and Allergies Home Medications Medication Instructions Recorded Confirmed Type Albuterol Nebulized [Ventolin 2.5 mg INHALATION RT-Q4H PRN 06/10/17 06/11/17 History Nebulized] Albuterol Sulfate [Proair Hfa] 1 - 2 puff INHALATION RT-Q4H PRN 06/10/17 History Aspirin EC [Ecotrin Low Dose] 81 mg PO DAILY 06/10/17 06/11/17 History Bumetanide [BUMEX] 2 mg PO BID 06/10/17 06/11/17 History Carvedilol [Coreg] 25 mg PO BID 06/10/17 06/11/17 History Cholecalciferol [Vitamin D3] 6,000 unit PO DAILY 06/10/17 06/11/17 History Febuxostat [Uloric] 40 mg PO DAILY 06/10/17 06/11/17 History Isosorbide Mononitrate ER [Imdur] 30 mg PO DAILY 06/10/17 06/11/17 History Latanoprost Ophth [Xalatan 0.005%] 1 drops BOTH EYES HS 06/10/17 06/11/17 History Losartan [Cozaar] 25 mg PO DAILY 06/10/17 06/11/17 History Magnesium Oxide [Mag-Ox] 800 mg PO DAILY 06/10/17 06/11/17 History Metolazone [Zaroxolyn] 5 mg PO MOWEFR 06/10/17 06/11/17 History Metoprolol Succinate (ER) [Toprol 100 mg PO DAILY 06/10/17 06/11/17 History Xl] Nitroglycerin Sl Tabs [Nitrostat] 0.4 mg SUBLINGUAL Q5M PRN 06/10/17 06/11/17 History Potassium Chloride [Klor-Con 20] 20 meq PO BID-W/MEALS 06/10/17 06/11/17 History Pravastatin Sodium [Pravachol] 80 mg PO DIRECTED 06/10/17 06/11/17 History Ranitidine HCl [Zantac] 300 mg PO HS 06/10/17 06/11/17 History Spironolactone [Aldactone] 25 mg PO DIRECTED 06/10/17 06/11/17 History Allergies Allergy/AdvReac Type Severity Reaction Status Date / Time KATHY Inhibitors Allergy Unknown Verified 06/11/17 02:02 ARB-Angiotensin Receptor Allergy Unknown Verified 06/11/17 02:02 Antagonist carvedilol [From Coreg] Allergy Itching Verified 06/11/17 11:09 niacin Allergy Unknown Verified 06/11/17 02:02 NSAIDS (Non-Steroidal Allergy Unknown Verified 06/11/17 02:02 Anti-Inflamma omeprazole Allergy Unknown Verified 06/11/17 02:02 Penicillins Allergy Rash/Hives Verified 06/11/17 02:02 toremifene Allergy Unknown Verified 06/11/17 02:02 IRON OXIDE Allergy Itching Uncoded 06/11/17 11:08 Physical Exam Vitals: Vital Signs Temp Pulse Pulse Resp BP BP Pulse Ox 06/11/17 15:26 16 06/11/17 15:25 97.1 F L 59 L 16 121/76 95 06/11/17 14:00 55 L 144/71 06/11/17 13:45 56 L 135/70 06/11/17 13:30 56 L 144/71 06/11/17 13:09 57 L 145/74 06/11/17 13:05 57 L 143/70 06/11/17 12:58 57 L 138/77 06/11/17 12:54 57 L 146/70 06/11/17 12:44 61 137/80 06/11/17 11:05 97.3 F L 63 20 158/84 97 06/11/17 08:00 97.5 F L 62 16 135/55 99 06/11/17 04:00 97.9 F 56 L 18 153/63 100 06/11/17 01:47 98.6 F 60 16 156/74 96 06/11/17 00:27 66 18 140/64 100 06/10/17 22:21 98.9 F 66 20 160/67 99 Intake and Output 06/11/17 06/11/17 06/11/17 06:59 14:59 22:59 Intake Total 200 120 Output Total 400 200 Balance 200 -280 -200 Intake: Oral 200 120 Output: Urine 400 200 Other: Voiding Method Toilet Toilet Toilet Urinal Urinal # Voids 1 Weight 118.388 kg PHYSICAL EXAMINATION: Patient is lying in the bed comfortably, no acute distress, awake alert and oriented.. HEENT: Normocephalic. Neck is supple. Pupils reactive. Nostrils clear. Oral cavity is moist. Ears reveal no drainage. Neck reveals no JVD, carotid bruits, or thyromegaly. CHEST EXAMINATION: Trachea is central. Symmetrical expansion. Lung haider clear to auscultation and percussion. CARDIAC: Normal S1, S2 with no gallops. No murmurs ABDOMEN: Soft. Bowel sounds normal. No organomegaly. No abdominal bruits. Extremities reveal no edema. No clubbing or cyanosis Neurologically awake, alert, oriented x3 with well-coordinated movements. Skin: no rash or skin lesions Musculoskeletal: no joint swelling or deformity. Results CBC & Chem 7: 06/10/17 22:19 06/10/17 22:19 Labs: Abnormal Lab Results - Last 24 Hours (Table) 06/10/17 06/10/17 06/10/17 Range/Units 22:19 22:19 22:19 RBC 3.82 L (4.30-5.90) m/uL Hgb 11.7 L (13.0-17.5) gm/dL Hct 35.1 L (39.0-53.0) % RDW 18.0 H (11.5-15.5) % Lymphocytes # 0.8 L (1.0-4.8) k/uL Chloride 95 L (98-107) mmol/L Carbon Dioxide 32 H (22-30) mmol/L BUN 67 H (9-20) mg/dL Creatinine 2.20 H (0.66-1.25) mg/dL Glucose 131 H (74-99) mg/dL Total Creatine Kinase 47 L (55-170) U/L 06/11/17 06/11/17 Range/Units 04:07 11:18 RBC (4.30-5.90) m/uL Hgb (13.0-17.5) gm/dL Hct (39.0-53.0) % RDW (11.5-15.5) % Lymphocytes # (1.0-4.8) k/uL Chloride (98-107) mmol/L Carbon Dioxide (22-30) mmol/L BUN (9-20) mg/dL Creatinine (0.66-1.25) mg/dL Glucose (74-99) mg/dL Total Creatine Kinase 39 L 37 L (55-170) U/L Thrombosis Risk Factor Assmnt - DVT/VTE Prophylaxis DVT/VTE Prophylaxis: Pharmacologic Prophylaxis ordered - Choose All That Apply Any of the Below Risk Factors Present?: Yes Each Factor Represents 1 point: Abnormal pulmonary function (COPD), Age 41-60 years, Heart failure (<1month), Obesity (BMI >25), Swollen legs (current) Other Risk Factors: No Other congenital or acquired thrombophilia - If yes, enter type in comment: No Thrombosis Risk Factor Assessment Total Risk Factor Score: 5 Thrombosis Risk Factor Assessment Level: High Risk Assessment and Plan Plan: #1 status post defibrillator discharge #2 history of ischemic coronary myopathy status post AICD placement in 2002 #3 history of coronary artery disease and coronary artery bypass graft #4 history of PCI #5 CK D stage III. Baseline creatinine not known #6 DVT prophylaxis #7 hypokalemia replaced. Plan Patient will be continued on telemetry monitoring. Defibrillator interrogation will be obtained. Cardiology is following this patient. Patient was started on amiodarone drip. Continue with aspirin and statins Coreg and other home medications. Patient currently symptom-free. Further recommendations based on the interrogation findings and clinical course. 2-D echo was obtained.
[2017-06-12] MEDS: HEPARIN SODIUM,PORCINE 5,000 UNIT/ML 1 ML VIAL SQ SCH ×4 (00:53→23:09)
[2017-06-12] MEDS: AMIODARONE 450 MG in DEXTROSE 5% IN WATER 250 ML IV SCH ×4 (04:08→12:56)
[2017-06-12 06:18] LABS: Anisocytosis Slight; Basophils % (A) 0 %; CH 30.9; Eosinophils # (A) 0.3 k/uL (0-0.7); Eosinophils % (A) 3 %; HCT 34.5 % (39.0-53.0); HDW 3.45; HGB 11.7 gm/dL (13.0-17.5); Luc # (Auto) 0.23; Luc % (Auto) 3; Lymphocytes # (A) 1.2 k/uL (1.0-4.8); Lymphocytes % (A) 15 %; MCV 91.2 fL (80.0-100.0); Mean Platelet Volume 6.7; Monocytes # (A) 0.5 k/uL (0-1.0); Monocytes % (A) 6 %; Neutrophils # (A) 6.1 k/uL (1.3-7.7); Neutrophils % (A) 73 %; Poikilocytosis Slight; RBC 3.78 m/uL (4.30-5.90); RDW 17.4 % (11.5-15.5); WBC 8.4 k/uL (3.8-10.6); WBC (Perox) 8.93
[2017-06-12 06:29] LABS: Calcium 9.4 mg/dL (8.4-10.2); Potassium 3.5 mmol/L (3.5-5.1)
[2017-06-12] MEDS: POTASSIUM CHLORIDE ER 20 MEQ TAB.ER PO SCH ×5 (06:37→17:50)
[2017-06-12] MEDS: CARVEDILOL 12.5 MG TAB PO SCH ×2 (06:37→17:50)
[2017-06-12] MEDS: ALLOPURINOL 100 MG TAB PO SCH (07:47)
[2017-06-12] MEDS: BUMETANIDE 1 MG TAB PO SCH ×2 (07:48→15:16)
[2017-06-12] MEDS: ASPIRIN 81 MG CHEW PO SCH (07:48)
[2017-06-12] MEDS: LOSARTAN 25 MG TAB PO SCH (07:49)
[2017-06-12] MEDS: ISOSORBIDE MONONITRATE ER 30 MG TAB.ER.24H PO SCH (07:49)
[2017-06-12] MEDS: PRAVASTATIN SODIUM 80 MG PO SCH (07:50)
[2017-06-12] MEDS: SPIRONOLACTONE 25 MG PO SCH (07:50)
[2017-06-12] MEDS ORDERED: ASPIRIN 325 MG TAB PO SCH (09:00)
[2017-06-12] MEDS ORDERED: METOPROLOL SUCCINATE (ER) 100 MG TAB.ER.24H PO SCH (09:00)
[2017-06-12] MEDS: MAGNESIUM OXIDE 400 MG TAB PO SCH (11:26)
[2017-06-12] MEDS: CHOLECALCIFEROL 1,000 UNIT TAB PO SCH (11:26)
--- NOTE | 2017-06-12 12:35 | P.PN ---
Subjective Principal diagnosis: AICD discharge This is a 56-year-old gentleman who lives in the [place] area. He has a history of ischemic cardiomyopathy with prior AICD implant, history of coronary artery bypass grafting surgery, prior PCI, hypertension, hyperlipidemia. He presented to the hospital following AICD discharge. Device was interrogated which revealed appropriate shocks for ventricular tachycardia and ventricular fibrillation. Patient was started on IV amiodarone yesterday, he has had no further runs of ventricular tachycardia or ventricular fibrillation. He is noted to have occasional PVC. Once the IV amiodarone was discontinued patient will be started on amiodarone 400 mg one tablet by mouth twice a day. Recommendation from Dr. Aden, continue to monitor the patient for the next 24 hours and then follow-up with his global risk management director at [facility] for possible outpatient EP study. Objective - Vital Signs Vital signs: Vital Signs Temp 97.8 F 06/12/17 08:00 Pulse 64 06/12/17 11:46 Resp 18 06/12/17 11:46 BP 157/91 06/12/17 11:46 Pulse Ox 97 06/12/17 11:46 Intake & Output 06/11/17 06/12/17 06/12/17 18:59 06:59 18:59 Intake Total 120 467.824 900 Output Total 700 1200 Balance -580 -732.176 900 Weight 117.7 kg Intake: IV 210 240 Amiodarone 450 mg In 210 240 Dextrose 5% in Water 250 ml @ 1 MG/MIN 34.53 mls/ hr IV .Q7H31M [facility] Rx#: [id number] Intake, IV Titration 257.824 Amount Amiodarone 450 mg In 257.824 Dextrose 5% in Water 250 ml @ 1 MG/MIN 34.53 mls/ hr IV .Q7H31M [facility] Rx#: [id number] Oral 120 660 Output: Urine 700 1200 Other: Voiding Method Toilet Urinal - Exam PHYSICAL EXAMINATION: HEENT: Head is atraumatic, normocephalic. Pupils equal, round. Neck is supple. There is no elevated jugular venous pressure. HEART EXAMINATION: Heart S1, S2 systolic murmur is heard. . No murmur or gallop heard. CHEST EXAMINATION: Lungs are clear to auscultation and precussion. No chest wall tenderness is noted on palpation or with deep breathing. ABDOMEN: Soft, nontender. Bowel sounds are heard. No organomegaly noted]. EXTREMITIES:[ 2+ peripheral pulses with no evidence of peripheral edema and no calf tenderness noted]. NEUROLOGIC [patient is awake, alert and oriented -3.] . - Labs CBC & Chem 7: 06/12/17 05:38 06/12/17 05:38 Labs: Abnormal Lab Results - Last 24 Hours (Table) 06/11/17 06/12/17 06/12/17 Range/Units 11:18 05:38 05:38 RBC 3.78 L (4.30-5.90) m/uL Hgb 11.7 L (13.0-17.5) gm/dL Hct 34.5 L (39.0-53.0) % RDW 17.4 H (11.5-15.5) % Plt Count 142 L (150-450) k/uL Carbon Dioxide 31 H (22-30) mmol/L BUN 56 H (9-20) mg/dL Creatinine 1.80 H (0.66-1.25) mg/dL Total Creatine Kinase 37 L (55-170) U/L Triglycerides 279 H (<150) mg/dL HDL Cholesterol 28 L (40-60) mg/dL Assessment and Plan (1) Hx of CABG Status: Acute (2) Ischemic cardiomyopathy Status: Acute (3) V-tach Status: Acute (4) Defibrillator discharge Status: Acute Plan: From cardiology's perspective, we will change the patient over to amiodarone 400 mg one tablet by mouth twice a day once the drip is finished. We will replace his potassium and continue to monitor the patient for the next 24 hours. Possible discharge home tomorrow with outpatient appointment with his global risk management director for possible EP study. DNP note has been reviewed, I agree with a documented findings and plan of care. Patient was seen and examined.
[2017-06-12] MEDS: AMIODARONE 200 MG TAB PO SCH ×2 (12:56→20:33)
[2017-06-12] MEDS: FAMOTIDINE 20 MG TAB PO SCH (20:33)
[2017-06-12] MEDS: LATANOPROST 0.005% OPHTH DROPS 2.5 ML BTL BOTH EYES SCH (20:34)
[2017-06-13] MEDS: CARVEDILOL 12.5 MG TAB PO SCH (06:39)
[2017-06-13] MEDS: POTASSIUM CHLORIDE ER 20 MEQ TAB.ER PO SCH (06:39)
[2017-06-13] MEDS: HEPARIN SODIUM,PORCINE 5,000 UNIT/ML 1 ML VIAL SQ SCH (08:31)
[2017-06-13] MEDS: ALLOPURINOL 100 MG TAB PO SCH (08:31)
[2017-06-13] MEDS: BUMETANIDE 1 MG TAB PO SCH (08:32)
[2017-06-13] MEDS: ASPIRIN 81 MG CHEW PO SCH (08:32)
[2017-06-13] MEDS: AMIODARONE 200 MG TAB PO SCH (08:32)
[2017-06-13] MEDS: LOSARTAN 25 MG TAB PO SCH (08:33)
[2017-06-13] MEDS: ISOSORBIDE MONONITRATE ER 30 MG TAB.ER.24H PO SCH (08:33)
[2017-06-13] MEDS: METOLAZONE 5 MG TAB PO SCH (08:34)
[2017-06-13] MEDS: PRAVASTATIN SODIUM 80 MG PO SCH (08:34)
[2017-06-13] MEDS: SPIRONOLACTONE 25 MG PO SCH (08:35)
--- NOTE | 2017-06-13 09:55 | P.PN ---
Subjective Principal diagnosis: ICD shocks This is a 56-year-old gentleman who lives in the [place] area. He has a history of ischemic cardiomyopathy with prior AICD implant, history of coronary artery bypass grafting surgery, prior PCI, hypertension, hyperlipidemia. He presented to the hospital following AICD discharge. Device was interrogated which revealed appropriate shocks for ventricular tachycardia and ventricular fibrillation. Patient was started on IV amiodarone yesterday, he has had no further runs of ventricular tachycardia or ventricular fibrillation. He is noted to have occasional PVC. The patient was started on amiodarone by mouth after the amiodarone IV. He has been asymptomatic. No more sustained VT were seen. From the cardiovascular standpoint of view, the patient can be discharged home on amiodarone by mouth and he follows with a mule driver out of the town. Objective - Vital Signs Vital signs: Vital Signs Temp 97.1 F L 06/13/17 08:00 Pulse 56 L 06/13/17 08:00 Resp 18 06/13/17 08:00 BP 113/69 06/13/17 08:00 Pulse Ox 95 06/13/17 08:00 Intake & Output 06/12/17 06/13/17 06/13/17 18:59 06:59 18:59 Intake Total 1639 0 230 Output Total 600 850 400 Balance 1039 -850 -170 Weight 117.4 kg Intake: IV 240 0 Amiodarone 450 mg In 240 0 Dextrose 5% in Water 250 ml @ 1 MG/MIN 34.53 mls/ hr IV .Q7H31M [facility] Rx#: [id number] Intake, IV Titration 259 Amount Amiodarone 450 mg In 259 Dextrose 5% in Water 250 ml @ 1 MG/MIN 34.53 mls/ hr IV .Q7H31M [facility]RELLA Rx#: [id number] Oral 1140 230 Output: Urine 600 850 400 Other: Voiding Method Toilet Urinal # Voids 1 1 # Bowel Movements 0 0 - Constitutional General appearance: Present: no acute distress - Respiratory Respiratory: bilateral: CTA - Cardiovascular Heart sounds: normal: S1, S2 - Labs CBC & Chem 7: 06/12/17 05:38 06/12/17 05:38 Assessment and Plan Plan: This is a pleasant 56-year-old gentleman was known AICD and known severe cardiomyopathy who was admitted to the hospital was ICD shocks and was found to have sustained VT. It was appropriate shock. From a perivascular standpoint overview, the patient can be discharged home. He has been doing good and amiodarone. He needs to follow-up with his mule driver.
[2017-06-13] MEDS: MAGNESIUM OXIDE 400 MG TAB PO SCH (11:17)
[2017-06-13] MEDS: CHOLECALCIFEROL 1,000 UNIT TAB PO SCH (11:17)
[2017-06-13 11:50] VITALS: BP 119/83; PULSE 51; TEMP 97.2
--- NOTE | 2017-06-13 13:58 | CDI ---
In responding to this query, please exercise your independent professional judgment. The [facility] Coding Staff and Clinical Documentation Specialists appreciate your assistance in clarifying documentation, maintaining compliance with coding guidelines, accurately documenting patients condition and capturing severity of illness. The fact that a question is asked does not imply that any particular answer is desired or expected. Communication forms are a method of clarifying documentation and are not made part of the Legal Health Record. Thank you in advance for your clarification. Last Revision, December 2016 Alice Haji [address] [place] [address] Documentation Clarification Form Date: 06/13/2017 1:48:00 PM From: Elena Quintana RN, CCDS Admit Date: 06/11/2017 12:10:00 AM Patient Name: Ramses Isbell Visit Number: [id number] Dr. Mansoor Mchugh CHF is documented in the Medical Hx. History/Risk Factors: Angina, CHF, COPF, GERD, HTN, AICD< CABG, Heart Cath with Stents Clinical Indicators: VS/Pulse OX: temp 98.9, hr 66, RR 20, B/P 160/67, spo2 99%2l NC BNP: not done Echocardiogram Results: EF 40-45%, basal inferior LV wall hypokinesis, basal inferioseptal LV is hypokinetc Chest X Ray:- Treatment: Consults: cardiology Bumex 2 mg PO BID Aldactone 25 mg po QD In your professional opinion, can you please clarify the acuity and type of CHF if known? Systolic Heart Failure: Acute Chronic Acute on Chronic Diastolic Heart Failure: Acute Chronic Acute on Chronic Systolic & Diastolic Heart Failure: Acute Chronic Acute on Chronic Unable to determine Other, please specify Please document in your progress notes and discharge summary in order to capture severity of illness and risk of mortality. Include clinical findings that support your diagnosis. FYI: Press F11 to launch patient chart. Place X here if this finding has no clinical significance, is not applicable or if you are not able to provide any additional documentation. MTDD
--- NOTE | 2017-06-14 00:53 | P.PN ---
Subjective Principal diagnosis: Defibrillator discharge Patient is a pleasant 56-year-old male with a known history of ischemic cardio myopathy status post AICD placement, history of coronary artery bypass graft and also history of PCI presenting to the emergency department following defibrillator firing. Patient states it fired twice prior to arrival. Patient was symptom-free prior to defibrillation. Patient states at this time he does feel slightly fatigued and does have some minimal palpitations. Patient did have similar episode happened this morning and was in the emergency department. cardiology was consulted. Patient denies any chest discomfort. No dyspnea. Patient denied any recent illness. Patient usually follows with [facility]. Patient had chest x-ray in the yard showed no acute process. EKG showed sinus rhythm with right bundle branch block and PVCs. 2-D echo showed his extraction 40-45% and dilated left atrium. 06/12/2017 Patient continues to be on amiodarone drip. Defibrillator discharges appropriate. Cardiology is following this patient. Patient denied any chest pain or short of breath. No acute overnight issues. No chest pain no short of breath. Objective - Vital Signs Vital signs: Vital Signs Temp 98.9 F 06/12/17 20:00 Pulse 67 06/12/17 20:00 Resp 18 06/12/17 20:00 BP 124/67 06/12/17 20:00 Pulse Ox 95 06/12/17 20:12 Intake & Output 06/12/17 06/12/17 06/13/17 06:59 18:59 06:59 Intake Total 114.227 9402 Output Total 1200 600 Balance -817.811 6412 Weight 117.7 kg Intake: IV 210 240 Amiodarone 450 mg In 210 240 Dextrose 5% in Water 250 ml @ 1 MG/MIN 34.53 mls/ hr IV .Q7H31M ESTRELLA Rx#: [id number] Intake, IV Titration 257.824 259 Amount Amiodarone 450 mg In 257.824 259 Dextrose 5% in Water 250 ml @ 1 MG/MIN 34.53 mls/ hr IV .Q7H31M ESTRELLA Rx#: [id number] Oral 1140 Output: Urine 1200 600 Other: # Voids 1 # Bowel Movements 0 - Exam Patient is lying in the bed comfortably, no acute distress, awake alert and oriented.. HEENT: Normocephalic. Neck is supple. Pupils reactive. Nostrils clear. Oral cavity is moist. Ears reveal no drainage. Neck reveals no JVD, carotid bruits, or thyromegaly. CHEST EXAMINATION: Trachea is central. Symmetrical expansion. Lung haider clear to auscultation and percussion. CARDIAC: Normal S1, S2 with no gallops. No murmurs ABDOMEN: Soft. Bowel sounds normal. No organomegaly. No abdominal bruits. Extremities reveal no edema. No clubbing or cyanosis Neurologically awake, alert, oriented x3 with well-coordinated movements. Skin: no rash or skin lesions Musculoskeletal: no joint swelling or deformity. - Labs CBC & Chem 7: 06/12/17 05:38 06/13/17 13:11 Labs: Abnormal Lab Results - Last 24 Hours (Table) 06/12/17 06/12/17 Range/Units 05:38 05:38 RBC 3.78 L (4.30-5.90) m/uL Hgb 11.7 L (13.0-17.5) gm/dL Hct 34.5 L (39.0-53.0) % RDW 17.4 H (11.5-15.5) % Plt Count 142 L (150-450) k/uL Carbon Dioxide 31 H (22-30) mmol/L BUN 56 H (9-20) mg/dL Creatinine 1.80 H (0.66-1.25) mg/dL Triglycerides 279 H (<150) mg/dL HDL Cholesterol 28 L (40-60) mg/dL Assessment and Plan Plan: #1 status post defibrillator discharge. Likely due to ventricular arrhythmia. Defibrillator interrogation was done #2 history of ischemic coronary myopathy status post AICD placement in 2002 #3 history of coronary artery disease and coronary artery bypass graft #4 history of PCI #5 CK D stage III. Baseline creatinine not known #6 DVT prophylaxis #7 hypokalemia replaced. Plan Patient will be continued on telemetry monitoring. Defibrillator interrogation was done by cardiology. Cardiology is following this patient. Patient was started on amiodarone drip. Continue with aspirin and statins Coreg and other home medications. Patient currently symptom-free. Further recommendations based on the interrogation findings and clinical course. 2-D echo was obtained.
--- NOTE | 2017-06-14 00:57 | P.DS ---
Providers Date of admission: 06/11/17 00:10 Expected date of discharge: 06/13/17 Attending physician: Aby Rae Consults: 06/11/17 00:11 Consult Physician Urgent Consulting Provider: Akash Talbert Consult Reason/Comments: Defibrillator discharge Do you want consulting provider notified?: Yes Primary care physician: Ela Bowles MD Hospital Course: Discharge Diagnosis #1 status post defibrillator discharge. Likely due to ventricular arrhythmia. 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 Baseline creatinine not known #6 DVT prophylaxis #7 hypokalemia replaced. Plan Patient was continued on telemetry monitoring. Defibrillator interrogation was done by cardiology. Patient was started on amiodarone drip. Continued with aspirin and statins Coreg and other home medications. Patient currently symptom -free. 2-D echo was obtained. No ventricular arrhythmia noted last 24 hours. Patient will be continued on amiodarone by mouth 4 mg twice a day as per cardiology recommendations and follow up [facility] as an [facility]. Hospital course Patient is a pleasant 56-year-old male with a known history of ischemic cardio myopathy status post AICD placement, history of coronary artery bypass graft and also history of PCI presenting to the emergency department following defibrillator firing. Patient states it fired twice prior to arrival. Patient was symptom-free prior to defibrillation. Patient states at this time he does feel slightly fatigued and does have some minimal palpitations. Patient did have similar episode happened this morning and was in the emergency department. cardiology was consulted. Patient denies any chest discomfort. No dyspnea. Patient denied any recent illness. Patient usually follows with [facility]. Patient had chest x-ray in the yard showed no acute process. EKG showed sinus rhythm with right bundle branch block and PVCs. 2-D echo showed his extraction 40-45% and dilated left atrium. 06/12/2017 Patient continues to be on amiodarone drip. Defibrillator discharges appropriate. Cardiology is following this patient. Patient denied any chest pain or short of breath. No acute overnight issues. No chest pain no short of breath. 06/13/2017 Patient denied any complaints today. Examination Patient is lying in the bed comfortably, no acute distress, awake alert and oriented.. HEENT: Normocephalic. Neck is supple. Pupils reactive. Nostrils clear. Oral cavity is moist. Ears reveal no drainage. Neck reveals no JVD, carotid bruits, or thyromegaly. CHEST EXAMINATION: Trachea is central. Symmetrical expansion. Lung haider clear to auscultation and percussion. CARDIAC: Normal S1, S2 with no gallops. No murmurs ABDOMEN: Soft. Bowel sounds normal. No organomegaly. No abdominal bruits. Extremities reveal no edema. No clubbing or cyanosis Neurologically awake, alert, oriented x3 with well-coordinated movements. Skin: no rash or skin lesions Musculoskeletal: no joint swelling or deformity. Plan - Discharge Summary New Discharge Prescriptions: New Amiodarone [Cordarone] 400 mg PO BID #60 tab Continue Pravastatin Sodium [Pravachol] 80 mg PO DIRECTED Potassium Chloride [Klor-Con 20] 20 meq PO BID-W/MEALS Nitroglycerin Sl Tabs [Nitrostat] 0.4 mg SUBLINGUAL Q5M PRN PRN Reason: Chest Pain Metolazone [Zaroxolyn] 5 mg PO MOWEFR Latanoprost Ophth [Xalatan 0.005%] 1 drops BOTH EYES HS Isosorbide Mononitrate ER [Imdur] 30 mg PO DAILY Febuxostat [Uloric] 40 mg PO DAILY Cholecalciferol [Vitamin D3] 6,000 unit PO DAILY Bumetanide [BUMEX] 2 mg PO BID Albuterol Nebulized [Ventolin Nebulized] 2.5 mg INHALATION RT-Q4H PRN PRN Reason: Shortness Of Breath Albuterol Sulfate [Proair Hfa] 1 - 2 puff INHALATION RT-Q4H PRN PRN Reason: Shortness Of Breath Spironolactone [Aldactone] 25 mg PO DIRECTED Ranitidine HCl [Zantac] 300 mg PO HS Magnesium Oxide [Mag-Ox] 800 mg PO DAILY Losartan [Cozaar] 25 mg PO DAILY Carvedilol [Coreg] 25 mg PO BID Aspirin EC [Ecotrin Low Dose] 81 mg PO DAILY Discontinued Metoprolol Succinate (ER) [Toprol Xl] 100 mg PO DAILY Discharge Medication List Albuterol Nebulized [Ventolin Nebulized] 2.5 mg INHALATION RT-Q4H PRN 06/10/17 [ History] Albuterol Sulfate [Proair Hfa] 1 - 2 puff INHALATION RT-Q4H PRN 06/10/17 [ History] Aspirin EC [Ecotrin Low Dose] 81 mg PO DAILY 06/10/17 [History] Bumetanide [BUMEX] 2 mg PO BID 06/10/17 [History] Carvedilol [Coreg] 25 mg PO BID 06/10/17 [History] Cholecalciferol [Vitamin D3] 6,000 unit PO DAILY 06/10/17 [History] Febuxostat [Uloric] 40 mg PO DAILY 06/10/17 [History] Isosorbide Mononitrate ER [Imdur] 30 mg PO DAILY 06/10/17 [History] Latanoprost Ophth [Xalatan 0.005%] 1 drops BOTH EYES HS 06/10/17 [History] Losartan [Cozaar] 25 mg PO DAILY 06/10/17 [History] Magnesium Oxide [Mag-Ox] 800 mg PO DAILY 06/10/17 [History] Metolazone [Zaroxolyn] 5 mg PO MOWEFR 06/10/17 [History] Nitroglycerin Sl Tabs [Nitrostat] 0.4 mg SUBLINGUAL Q5M PRN 06/10/17 [History] Potassium Chloride [Klor-Con 20] 20 meq PO BID-W/MEALS 06/10/17 [History] Pravastatin Sodium [Pravachol] 80 mg PO DIRECTED 06/10/17 [History] Ranitidine HCl [Zantac] 300 mg PO HS 06/10/17 [History] Spironolactone [Aldactone] 25 mg PO DIRECTED 06/10/17 [History] Amiodarone [Cordarone] 400 mg PO BID #60 tab 06/13/17 [Rx] Follow up Appointment(s)/Referral(s): Ela Bowles MD [Primary Care Provider] - 1-2 days Activity/Diet/Wound Care/Special Instructions: Pt to follow up with [facility]. Discharge Disposition: HOME SELF-CARE
== END 2017-06-13 16:20 | disposition home or self-care (01) | DRG 309 ==
LOC: EC 22:16 → 3OBS 06-11 00:10 → OBSVTOIN 06-11 00:10 → 6SEL 06-11 10:40
PROVIDERS: ADMIT Hospitalist; ATTEND Hospitalist
DX: I47.2 Ventricular tachycardia (principal); I50.22 Chronic systolic (congestive) heart failure; I13.0 Hypertensive heart and chronic kidney disease with heart failure and stage 1 through stage 4 chronic kidney disease, or unspecified chronic kidney disease; I49.01 Ventricular fibrillation; E78.5 Hyperlipidemia, unspecified; E87.6 Hypokalemia; F41.9 Anxiety disorder, unspecified; I25.10 Atherosclerotic heart disease of native coronary artery without angina pectoris; I25.2 Old myocardial infarction; I25.5 Ischemic cardiomyopathy; I45.10 Unspecified right bundle-branch block; J44.9 Chronic obstructive pulmonary disease, unspecified; K21.9 Gastro-esophageal reflux disease without esophagitis; R01.1 Cardiac murmur, unspecified; N18.3 Chronic kidney disease, stage 3 (moderate); Z79.82 Long term (current) use of aspirin; Z79.899 Other long term (current) drug therapy; Z87.891 Personal history of nicotine dependence; Z95.810 Presence of automatic (implantable) cardiac defibrillator; Z95.5 Presence of coronary angioplasty implant and graft; Z95.1 Presence of aortocoronary bypass graft; Z88.0 Allergy status to penicillin; Z88.8 Allergy status to other drugs, medicaments and biological substances; Z82.49 Family history of ischemic heart disease and other diseases of the circulatory system
CPT/HCPCS: 36415; 71010; 80048; 80053; 80061; 82550; 82553; 83036; 83735; 84132; 84439; 84443; 84481; 84484; 85025; 85610; 85730; 93005; 93306; 94760; 99285